=== PATIENT | female | born 1985 | race Caucasian/White ===

== ENCOUNTER 2020-01-25 10:02 | Day surgery (SDC) | payer OTHER ==
[2020-01-20 12:56] VITALS: BMI 20.1
[2020-01-25 10:20] VITALS: TEMP 98.7
[2020-01-25 12:31] VITALS: BP 105/61; PULSE 61
== END 2020-01-25 12:10 | disposition home or self-care (01) ==
LOC: FASU 10:02
PROVIDERS: ATTEND Internal Medicine Gastroenterology
PROC: 0DJ08ZZ Inspection of Upper Intestinal Tract, Via Natural or Artificial Opening Endoscopic (ICD-10-PCS; principal; 2020-01-25 11:21)
DX: R10.13 Epigastric pain (principal); Z87.19 Personal history of other diseases of the digestive system
CPT/HCPCS: 84703

== ENCOUNTER 2020-02-29 10:15 | Day surgery (SDC) | payer OTHER ==
[2020-02-17 17:30] VITALS: BMI 20.1
[2020-02-29 10:32] VITALS: TEMP 98.5
[2020-02-29] MEDS ORDERED: PROPOFOL 20 ML ONE ×2 (11:22)
[2020-02-29 12:41] VITALS: BP 104/64; PULSE 79
--- NOTE | 2020-03-02 17:22 | PATH ---
Surgical Pathology Report Patient Name: JOE THOMAS Med. Rec. #: [id number] /Age/Gender: 1985 (Age: 35) / F Account: [id number] Location: [facility] Taken: 02/29/2020 Received: 02/29/2020 Reported: 03/02/2020 Physicians: Carmelita Zhang M.D. Specimen(s) Received A: SECOND PORTION DUODENUM B: ANTRUM C: POLYP GE JUNCTION Clinical History Bloating, dyspepsia Postoperative diagnosis: Esophageal nodule, gastritis Final Diagnosis A. DUODENUM, SECOND PORTION, BIOPSY: DUODENAL MUCOSA WITHOUT SIGNIFICANT PATHOLOGIC FINDINGS. B. GASTRIC ANTRUM, BIOPSY: GASTRIC ANTRAL MUCOSA WITH MILD CHRONIC GASTRITIS. IMMUNOHISTOCHEMICAL STAIN FOR H. PYLORI IS NEGATIVE. C. GE JUNCTION, POLYP, BIOPSY: POLYPOID SQUAMOCOLUMNAR MUCOSA WITH MODERATE TO SEVERE ACUTE AND CHRONIC INFLAMMATION, AND SEVERE BASAL CELL HYPERPLASIA CONSISTENT WITH SEVERE REFLUX TYPE ESOPHAGITIS. NO INTESTINAL METAPLASIA OR DYSPLASIA IDENTIFIED. Positive and negative controls (internal if applicable) show appropriate results. Electronically Signed Carmelita King M.D. Gross Description A. Received in formalin, labeled "second portion duodenum" is a gonzalez, irregular portion of soft tissue measuring 0.4 cm. in greatest dimension. The specimen is submitted in toto in one cassette. B. Received in formalin, labeled "gastric antrum" is a gonzalez, irregular portion of soft tissue measuring 0.3 cm. in greatest dimension. The specimen is submitted in toto in one cassette. C. Received in formalin, labeled "GE junction polyp" are 2 gonzalez, irregular portions of soft tissue measuring 0.1 and 0.2 cm. in greatest dimension. The specimens are submitted in toto in one cassette. MLSZ/03/01/2020 sanml/03/01/2020
== END 2020-02-29 12:20 | disposition home or self-care (01) ==
LOC: FASU 10:15
PROVIDERS: ATTEND Internal Medicine Gastroenterology
PROC: 0DB68ZX Excision of Stomach, Via Natural or Artificial Opening Endoscopic, Diagnostic (ICD-10-PCS; 2020-02-29)
PROC: 0DB48ZX Excision of Esophagogastric Junction, Via Natural or Artificial Opening Endoscopic, Diagnostic (ICD-10-PCS; 2020-02-29)
PROC: 0DB98ZX Excision of Duodenum, Via Natural or Artificial Opening Endoscopic, Diagnostic (ICD-10-PCS; principal; 2020-02-29 11:28)
DX: K29.50 Unspecified chronic gastritis without bleeding (principal); K21.0 Gastro-esophageal reflux disease with esophagitis; R10.13 Epigastric pain; K31.89 Other diseases of stomach and duodenum
CPT/HCPCS: 84703; 88305-TC; 88342-TC

== ENCOUNTER 2022-04-16 09:59 | Day surgery (SDC) | payer OTHER ==
[2022-04-15 12:50] VITALS: BMI 20.1
[2022-04-16 10:16] VITALS: TEMP 98.2
[2022-04-16 12:06] VITALS: RESP 18
[2022-04-16 12:15] VITALS: BP 101/60; PULSE 61
== END 2022-04-16 12:15 | disposition home or self-care (01) ==
LOC: FASU-ENDO 09:59
PROVIDERS: ATTEND Internal Medicine Gastroenterology
PROC: 0DB68ZX Excision of Stomach, Via Natural or Artificial Opening Endoscopic, Diagnostic (ICD-10-PCS; 2022-04-16)
PROC: 0DB48ZX Excision of Esophagogastric Junction, Via Natural or Artificial Opening Endoscopic, Diagnostic (ICD-10-PCS; 2022-04-16)
PROC: 0DB98ZX Excision of Duodenum, Via Natural or Artificial Opening Endoscopic, Diagnostic (ICD-10-PCS; principal; 2022-04-16 11:26)
DX: K29.50 Unspecified chronic gastritis without bleeding (principal); K20.90 Esophagitis, unspecified without bleeding; K31.89 Other diseases of stomach and duodenum; R10.13 Epigastric pain
CPT/HCPCS: 84703; 88305-TC; 88342-TC

== ENCOUNTER 2023-04-07 05:25 | Day surgery (SDC) | payer OTHER ==
[2023-04-03 09:15] VITALS: BMI 20.1
[~2023-04-07 05:25] MED LIST: BUPIVACAINE HCL/PF 0.5% (5 MG/ML) 30 ML VIAL IJ ONE; DEXAMETHASONE SOD PHOSPHATE 10 MG/1 ML VIAL IVPUSH ONE; IOHEXOL 180 MG/1 ML ML IJ ONE; LIDOCAINE 1% P/F 10 MG/ML VIAL INF ONE
[2023-04-07 10:38] VITALS: RESP 20
[2023-04-07] MEDS ORDERED: ACETAMINOPHEN 500 MG TABLET (FP) PO PRN (12:10)
[2023-04-07] MEDS ORDERED: LIDOCAINE 1% P/F 10 MG/ML VIAL INF ONE (12:44)
[2023-04-07] MEDS ORDERED: BUPIVACAINE HCL/PF 0.5% (5 MG/ML) 30 ML VIAL IJ ONE (12:44)
[2023-04-07] MEDS ORDERED: TRIAMCINOLONE ACETONIDE 40 MG/ML 10 ML VIAL IJ ONE (12:44)
[2023-04-07] MEDS ORDERED: IOHEXOL 180 MG/1 ML ML IJ ONE ×2 (12:44)
[2023-04-07 13:27] VITALS: BP 110/76; PULSE 69; TEMP 97.8
== END 2023-04-07 13:54 | disposition home or self-care (01) ==
LOC: JASU-SURG 05:25
PROVIDERS: ATTEND Pain Medicine Pain Medicine
PROC: 3E023BZ Introduction of Anesthetic Agent into Muscle, Percutaneous Approach (ICD-10-PCS; 2023-04-07)
PROC: 3E0233Z Introduction of Anti-inflammatory into Muscle, Percutaneous Approach (ICD-10-PCS; principal; 2023-04-07 11:45)
DX: M53.3 Sacrococcygeal disorders, not elsewhere classified (principal)
CPT/HCPCS: 76000-TC-FY; 81025; J1100

== ENCOUNTER 2024-01-27 09:21 | Day surgery (SDC) | payer OTHER ==
[2024-01-25 15:02] VITALS: BMI 20.1
[2024-01-27] MEDS ORDERED: PROPOFOL 200 ML ONE (09:45)
[2024-01-27 10:52] VITALS: RESP 17; TEMP 97.3
[2024-01-27 11:19] VITALS: BP 90/54; PULSE 58
== END 2024-01-27 11:23 | disposition home or self-care (01) ==
LOC: FASU-ENDO 09:21
PROVIDERS: ATTEND Internal Medicine Gastroenterology
PROC: 0DBL8ZX Excision of Transverse Colon, Via Natural or Artificial Opening Endoscopic, Diagnostic (ICD-10-PCS; 2024-01-27)
PROC: 0DBP8ZX Excision of Rectum, Via Natural or Artificial Opening Endoscopic, Diagnostic (ICD-10-PCS; 2024-01-27)
PROC: 0DBM8ZX Excision of Descending Colon, Via Natural or Artificial Opening Endoscopic, Diagnostic (ICD-10-PCS; 2024-01-27)
PROC: 0DBK8ZX Excision of Ascending Colon, Via Natural or Artificial Opening Endoscopic, Diagnostic (ICD-10-PCS; principal; 2024-01-27 10:21)
DX: R19.7 Diarrhea, unspecified (principal); K64.1 Second degree hemorrhoids
CPT/HCPCS: 81025; 88305-TC